=== PATIENT | female | born 1985 | race Caucasian/White ===

== ENCOUNTER 2017-12-03 01:10 | Inpatient (IN) | payer OTHER, SELFPAY ==
[2017-12-02 21:40] VITALS: BMI 40.6
[2017-12-03] MEDS: Lactated Ringers 1,000 ML 50 ML IV ×4 (01:43→08:14)
[2017-12-03 01:47] LABS: Hematocrit 35.8 % (37-47); Hemoglobin 11.9 g/dl (12.0-15.0); Mean Corp Hgb Conc 33.2 g/gl (32-36); Mean Corpuscular Hgb 30.2 pg (27.0-32.0); Mean Corpuscular Volume 90.9 fL (81-99); Mean Platelet Vol. 10.8 fl (6.2-12.0); Platelet Count 172 K/mm3 (150-450); RBC Distribution Width SD 49.8 fl (35.1-43.9); Red Blood Count 3.94 M/mm3 (4.2-5.4); Scan Indicated on CBC? Y/N NO; White Blood Count 8.6 K/mm3 (4.4-11.0)
[2017-12-03] MEDS: fentaNYL-bupivacaine (epidural) 100 ML BAG EPIDURAL ×2 (03:08→08:14)
[2017-12-03] MEDS: Ondansetron 4 MG/2 ML Vial IV (04:30)
[2017-12-03] MEDS: 0.9% Saline Lock 10 ML Syringe IV (04:41)
[2017-12-03] MEDS: Oxytocin 30 units/NS 500 ml 30 UNITS/500 ML IV.SOLN IV (06:55)
--- NOTE | 2017-12-03 07:56 | PCM.HP.OB ---
History Date of Admission: 12/03/17 Final RAGHU: 12/03/17 Final RAGHU Source: LMP Gestational age: 40 Weeks and 0 Days History of this : 32yo @ 40 weeks c/o contractions - was found to be 5cm making change to 6cm with contractions every 2-3 min on arrival. pt admitted and epidural was given. pt denies LOF or VB. 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 no outbreak at this time h/o abnormal pap in 2011 Allergies No Known Allergies Allergy (Verified 10/28/15 04:07) Current Medications Acetaminophen (Tylenol) 325 - 650 mg PO Q4H PRN PRN PRN Reason: PAIN OR FEVER >100.4F Al Hydroxide/Mg Hydroxide (Mylanta Ii) 15 - 30 ml PO Q4H PRN PRN PRN Reason: INDIGESTION Citric Acid/Sodium Citrate (Bicitra) 30 ml PO UD PRN Lactated Ringer's () 1,000 mls @ 50 mls/hr IV .Q20H REPLACED BY [facility] Last Admin: 12/03/17 03:45 Dose: 50 mls/hr Penicillin G Potassium/Dextrose (Penicillin G Potassium) 3 mu in 50 mls @ 100 mls/hr IV Q4H NURIS Last Admin: 12/03/17 05:45 Dose: 100 mls/hr Naloxone HCl 4 mg/ Dextrose 504 mls @ 0 mls/hr IV PRN PRN; Protocol PRN Reason: TO MAINTAIN RR>10 Oxytocin/Sodium Chloride () 30 units in 500 mls @ 1 mls/hr IV .Q500H REPLACED BY [facility] Last Admin: 12/03/17 06:55 Dose: 1 mls/hr Nalbuphine HCl (Nubain) 5 - 10 mg IV Q3H PRN PRN PRN Reason: PAIN (4-10/10) Nalbuphine HCl (Nubain) 5 mg IV Q3H PRN PRN Reason: ITCHING Stop: 12/04/17 04:47 Naloxone HCl (Narcan) 0.2 mg IV Q1M PRN PRN Reason: RR<10 AND PT UNRESPONSIVE Stop: 12/04/17 04:47 Ondansetron HCl (Zofran) 4 mg IV Q8H PRN PRN PRN Reason: NAUSEA Last Admin: 12/03/17 04:30 Dose: 4 mg Promethazine HCl (Phenergan) 6.25 - 12.5 mg IV Q4H PRN PRN; Protocol PRN Reason: IF NAUSEA PERSISTS Sodium Chloride () 5 - 15 ml IV UD REPLACED BY [facility] Last Admin: 12/03/17 04:41 Dose: 10 ml Smoking Status: Never smoker Alcohol: None Number of Fetus(es): 1 Review of Systems Constitutional: Denies: Anorexia Cardiovascular: Denies: Chest Pain Physical Exam General: Alert, Oriented x3 Abdomen: Soft, Non Tender, Gravid Presentation: Cephalic Cervix Dilation (cm): 6 Station: -3 Effacement (%): 70 Assessment/Plan 32yo @ 40 wks gestation in labor 1) admit to L&D 2) monitor FHR/TOCO 3) epidural for pain 4) GBS+ will give PCN for prophylaxis 5) PN Labs reviewed- Rub imm, Syphilis neg, HIV Neg, HEP b neg, O+
--- NOTE | 2017-12-03 08:01 | HP.PCM_ITS ---
History Date of Admission: 12/03/17 Final RAGHU: 12/03/17 Final RAGHU Source: LMP Gestational age: 40 Weeks and 0 Days History of this : 32yo @ 40 weeks c/o contractions - was found to be 5cm making change to 6cm with contractions every 2-3 min on arrival. pt admitted and epidural was given. pt denies LOF or VB. 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 no outbreak at this time h/o abnormal pap in 2011 Allergies No Known Allergies Allergy (Verified 10/28/15 04:07) Current Medications Acetaminophen (Tylenol) 325 - 650 mg PO Q4H PRN PRN PRN Reason: PAIN OR FEVER >100.4F Al Hydroxide/Mg Hydroxide (Mylanta Ii) 15 - 30 ml PO Q4H PRN PRN PRN Reason: INDIGESTION Citric Acid/Sodium Citrate (Bicitra) 30 ml PO UD PRN Lactated Ringer's () 1,000 mls @ 50 mls/hr IV .Q20H [facility] Last Admin: 12/03/17 03:45 Dose: 50 mls/hr Penicillin G Potassium/Dextrose (Penicillin G Potassium) 3 mu in 50 mls @ 100 mls/hr IV Q4H [facility]URIS Last Admin: 12/03/17 05:45 Dose: 100 mls/hr Naloxone HCl 4 mg/ Dextrose 504 mls @ 0 mls/hr IV PRN PRN; Protocol PRN Reason: TO MAINTAIN RR>10 Oxytocin/Sodium Chloride () 30 units in 500 mls @ 1 mls/hr IV .Q500H [facility] Last Admin: 12/03/17 06:55 Dose: 1 mls/hr Nalbuphine HCl (Nubain) 5 - 10 mg IV Q3H PRN PRN PRN Reason: PAIN (4-10/10) Nalbuphine HCl (Nubain) 5 mg IV Q3H PRN PRN Reason: ITCHING Stop: 12/04/17 04:47 Naloxone HCl (Narcan) 0.2 mg IV Q1M PRN PRN Reason: RR<10 AND PT UNRESPONSIVE Stop: 12/04/17 04:47 Ondansetron HCl (Zofran) 4 mg IV Q8H PRN PRN PRN Reason: NAUSEA Last Admin: 12/03/17 04:30 Dose: 4 mg Promethazine HCl (Phenergan) 6.25 - 12.5 mg IV Q4H PRN PRN; Protocol PRN Reason: IF NAUSEA PERSISTS Sodium Chloride () 5 - 15 ml IV UD [facility] Last Admin: 12/03/17 04:41 Dose: 10 ml Smoking Status: Never smoker Alcohol: None Number of Fetus(es): 1 Review of Systems Constitutional: Denies: Anorexia Cardiovascular: Denies: Chest Pain Physical Exam General: Alert, Oriented x3 Abdomen: Soft, Non Tender, Gravid Presentation: Cephalic Cervix Dilation (cm): 6 Station: -3 Effacement (%): 70 Assessment/Plan 32yo @ 40 wks gestation in labor 1) admit to L&D 2) monitor FHR/TOCO 3) epidural for pain 4) GBS+ will give PCN for prophylaxis 5) PN Labs reviewed- Rub imm, Syphilis neg, HIV Neg, HEP b neg, O+
[2017-12-03] MEDS: Oxytocin 30 units/NS 500 ml 30 UNITS/500 ML IV.SOLN 334 UNITS IV (10:00)
[2017-12-03] MEDS: Oxytocin 30 units/NS 500 ml 30 UNITS/500 ML IV.SOLN 167 UNITS IV (10:30)
--- NOTE | 2017-12-03 12:54 | PCM.OB.VAG ---
Vaginal Delivery Maternal Presentation: Active Labor Amniotic Membrane Rupture Type: Artificial Amniotic Fluid Description: Clear Final RAGHU: 12/03/17 Gestational age: 40 Weeks and 0 Days Date of Procedure: 12/03/17 Pre-Operative Diagnosis: spontaneous labor Post-Operative Diagnosis: live female Surgery/ Procedure Performed: Spontaneous Vaginal Delivery Type of Anesthesia: Epidural Description of Procedure: of live female - appeared to have some terminal meconium at time of delivery. Delayed cord clamping performed. Presentation: Vertex Placental Delivery Description: Spontaneous Placenta Disposition: [facility] Cord Vessel Description: 3 Vessels Cord Entanglement: None Drain: Mercer to straight drain Estimated Blood Loss: 250 A gender: Female (1 minute): 8 (5 minute): 9 Episiotomy Description: None Laceration: None Medications given after delivery: IV Pitocin Complications: None
[2017-12-03 13:13] VITALS: BP 101/44; PULSE 80; RESP 16; TEMP 36.8; O2SAT 98
[2017-12-03] MEDS: Acetaminophen 500 MG Tablet 1000 MG PO ×2 (14:34→22:41)
[2017-12-03 15:46] VITALS: BP 96/52; PULSE 71; RESP 18; TEMP 36.9; O2SAT 99
[2017-12-03] MEDS: Ibuprofen 600 MG Tablet PO (18:32)
[2017-12-03 20:30] VITALS: BP 93/49; PULSE 80; RESP 16; TEMP 36.7; O2SAT 96
[2017-12-03] MEDS: Senna/Docusate Sodium 1 Tablet PO (22:41)
[2017-12-04 00:05] VITALS: BP 97/54; PULSE 61; RESP 17; TEMP 36.4
[2017-12-04 03:15] VITALS: BP 90/40; PULSE 74; RESP 18; TEMP 36.7; O2SAT 98
[2017-12-04] MEDS: Ibuprofen 600 MG Tablet PO (06:32)
--- NOTE | 2017-12-04 07:56 | PCM.PN.OB ---
Subjective: pt seen at bedside, doing well. pt reports good pain control. lochia mild. Breast feeding. denies dizziness, SOB, CP. - Physical Exam General: Alert, Oriented x3 Abdomen: Soft, Non Tender, Non-Distended, - - fundus firm Extremities: No Calf Tenderness Vital Signs Temp Pulse Resp BP Pulse Ox 98.1 F 74 18 90/40 L 98 12/04/17 03:15 12/04/17 03:15 12/04/17 03:15 12/04/17 03:15 12/04/17 03:15 Oxygen Delivery Method Room Air Weight: 97.522 kg Body Mass Index (BMI) 40.6 Intake and Output for Last 24 Hours 12/02/17 12/03/17 12/04/17 23:59 23:59 23:59 Intake Total 3155 / 3155 Output Total 500 / 500 Balance 2655 / 2655 Medical Necessity - Tobacco Use Smoking Status: Never smoker Assessment/Plan PPD#1, doing well routine care pain mgmt possible dc home today
--- NOTE | 2017-12-04 07:58 | DCINST_ITS ---
Discharge Diet: No Restrictions Discharge Activity: Return to Normal Activity, May not drive while taking narcotic pain medications., May Shower May resume sexual activity in: 4-6 weeks Additional Activity Instructions:: Nothing in the vagina for 4-6 weeks. You may return to work/school in 6 weeks. Call your doctor if your incision/area has: Continuous Slow Oozing, Sudden Increased Bleeding, Increased Pain/ Swelling, Increased Redness, Foul Smelling Discharge Additional Instructions: If you experience any of the following, contact your healthcare provider. * Bleeding that soaks a pad every hour for 2 hours * Fever 100.4 or higher * Unrelieved incision or abdominal pain * Swelling, redness, discharge or bleeding from your incision or episiotomy site * Your incision begins to separate * Problems urinating (including inability to urinate or burning while urinating) . * Visual changes * Severe headache * Flu-like symptoms * Pain or redness in one of both of your breasts * Pain, warmth, tenderness or swelling in your legs, especially the calf area * Frequent nausea and vomiting * Symptoms of depression or anxiety If you experience any of the following, call 911 or go to the nearest Emergency Room. * Chest pain * Problems breathing * Seizure activity * Partial or complete paralysis of a body part, slurred speech, weakness or drooping of the face, or a sudden inability to walk or hold your balance Allergies/Adverse Reactions: Allergies No Known Allergies Allergy (Verified 10/28/15 04:07) Medications to take at Discharge Vits [Prenatabs FA ] 1 tablet PO DAILY 11/06/13 Acyclovir [Zovirax] 400 mg PO TID 12/16/13 Ibuprofen [Motrin] 800 mg PO Q8H PRN PRN #30 tab 12/04/17 The following prescriptions were given: Ibuprofen [Motrin] 800 mg PO Q8H PRN PRN #30 tab PRN Reason: Pain When: Call to make an appointment with your doctor in 6 weeks. If you had elevated Blood Pressure or 4th degree laceration you will need to be seen in 2 weeks. Primary Care Physician: Care Physician,No Primary [Primary Care Provider] -
[2017-12-04 08:24] VITALS: BP 99/86; PULSE 97; RESP 16; TEMP 36.5; O2SAT 97
[2017-12-04] MEDS: Acetaminophen 500 MG Tablet 1000 MG PO (08:46)
--- NOTE | 2017-12-04 09:20 | NURSING ---
Reviewed assessment by Dominic
[2017-12-04 13:56] VITALS: BP 100/58; PULSE 76; RESP 14; TEMP 36.4; O2SAT 97
== END 2017-12-04 14:45 | disposition home or self-care (01) | DRG 774 ==
LOC: WPOUT 08:46
PROVIDERS: Obstetrics & Gynecology; Admitting Provider Obstetrics & Gynecology; Visit Provider Obstetrics & Gynecology
DX: O48.0 Post-term pregnancy (principal); O98.82 Other maternal infectious and parasitic diseases complicating childbirth; Z3A.40 40 weeks gestation of pregnancy; B95.1 Streptococcus, group B, as the cause of diseases classified elsewhere; O77.0 Labor and delivery complicated by meconium in amniotic fluid; Z37.0 Single live birth
CPT/HCPCS: 59025; 59050; 85027; 86850; 86900; 99218; J7120; A4216; G0378; J2405